=== PATIENT | female | born 1980 | race Two or more races ===

== ENCOUNTER 2024-04-17 09:23 | Day surgery (SDC) | payer OTHER ==
[2024-04-16 10:37] LABS: Anion Gap 5.2 mEq/L (5.0-15.0); Potassium 4.2 mEq/L (3.5-5.1)
[2024-04-17] MEDS ORDERED: ONDANSETRON 4 MG/2 ML VIAL ONE (11:01)
[2024-04-17] MEDS ORDERED: propofoL 200 MG/20 ML VIAL IV ONE (11:02)
[2024-04-17] MEDS ORDERED: MIDAZOLAM HCL 2 MG/2 ML INJ ONE (11:02)
[2024-04-17] MEDS ORDERED: LIDOCAINE 2% MPF 5 ML VIAL ONE (11:02)
[2024-04-17] MEDS ORDERED: FENTANYL CITR 100 MCG/2 ML ONE (11:02)
--- NOTE | 2024-04-17 11:53 | EKG ---
Test Date: 2024-04-16 Test Time: 10:06:05 [employer]iture [employer]phol[employer] Mechanic: ALLEN MEASUREMENT RESULTS: Intervals: Rate: 75 MO: 178 QRSD: 98 QT: 376 QTc: 419 [place]: P: -17 MO: 178 QRS: 74 T: 70 INTERPRETIVE STATEMENTS: Normal sinus rhythm Normal ECG No previous ECG available for comparison Electronically Signed On 04-17-24 11:51:14 CDT by Bonifacio Rosenberg
[2024-04-17] MEDS: Ringers Lactate 1,000 ML IV ONE (12:11)
[2024-04-17] MEDS: CEFAZOLIN SODIUM 2 GM/VIAL ONE (12:15)
[2024-04-17] MEDS ORDERED: dexAMETHasone 10 MG/ML VIAL ONE (12:40)
[2024-04-17] MEDS ORDERED: KETOROLAC 30 MG/ML INJ ONE (12:41)
[2024-04-17] MEDS: LIDOCAINE HCL/EPINEPHRINE 20 ML MDV ONE (12:44)
[2024-04-17] MEDS ORDERED: EPHEDRINE SULF 50 MG/ML VIAL ONE (12:50)
--- NOTE | 2024-04-17 12:57 | P.OP ---
Preoperative diagnosis: LEFT Buttock Lipoma Postoperative diagnosis: LEFT Buttock Lipoma Primary procedure: Wide Local Excision of LEFT Buttock Lipoma Anesthesia: GETA + Local Estimated blood loss: <2cc Specimen: LEFT Buttock Lipoma Findings: ~ 4cm LEFT Buttock Lipoma Complications: None Transferred to: Recovery Room Condition: Good
[2024-04-17 13:27] LABS: Urine Specific Gravity/Preg 1.025 (1.005-1.030)
--- NOTE | 2024-04-17 13:29 | OP ---
Date of Procedure: 04/17/2024 Surgeon: Jeff Thomas MD, Preoperative Diagnosis: Left buttock lipoma. Postoperative Diagnosis: Left buttock lipoma. Procedure Performed: Wide local excision of left buttock lipoma. Anesthesia: General endotracheal plus local with 1% lidocaine with epinephrine. Estimated Blood Loss: Less than 5 cc. Specimen: Left buttock lipoma. Findings: Approximately 4 cm left buttock lipoma into the adipose tissue. Complications: None. Disposition: The patient was transferred to recovery room in good condition. Procedure In Detail: After informed consent was obtained, the patient was brought to the operating r oom, prepped and draped in the usual sterile fashion, after adequate anesthesia achieved. I made an elliptical incision circumferentially around an obvious lump in the left buttock area consistent with lipoma with a 15 blade down to subcutaneous tissues. Electrocautery was used to dissect down throug h subcutaneous tissues, ultimately dissecting out a lipomatous mass approximately 4 cm in size. It w as sent off for pathologic examination. The area was copiously irrigated. Hemostasis was achieved w ith minimal electrocautery. The wound was then inspected. No hemostatic maneuvers were required. I then closed the deep dermal plane using interrupted 3-0 Vicryl sutures and skin was closed with a 4- 0 Monocryl in a running fashion. Dermabond was placed over top. The patient tolerated the procedure well without incident or complication and transferred to PACU in good condition. All counts were correct at the end of the ca se. GENNY/JAMEYL Voice ID: [id number] Report ID: [id number]
[2024-04-17 14:24] VITALS: BP 124/68; TEMP 96.9; O2SAT 99
== END 2024-04-17 14:20 | disposition home or self-care (01) ==
LOC: OR 09:23
PROVIDERS: ATTEND Surgery
PROC: 0JB90ZZ Excision of Buttock Subcutaneous Tissue and Fascia, Open Approach (ICD-10-PCS; principal; 2024-04-17 12:00)
DX: D17.1 Benign lipomatous neoplasm of skin and subcutaneous tissue of trunk (principal)
CPT/HCPCS: 11404; 93005; 80048; 36415; 81025; 88304; J2704; J2001; J2250; J3010; J1100; J2405; J7120